=== PATIENT | female | born 1980 | race Caucasian/White ===

== ENCOUNTER 2018-02-15 11:55 | Outpatient (CLI) | payer OTHER | END 2018-02-15 11:56 | disposition home or self-care (01) | LOC: BICMAMMO 11:55 | PROVIDERS: ATTEND Family Medicine | DX: N64.4 Mastodynia (principal); Z80.3 Family history of malignant neoplasm of breast | CPT/HCPCS: 77066; G0279 ==

== ENCOUNTER 2019-03-26 09:04 | Outpatient (CLI) | payer OTHER ==
--- NOTE | 2019-03-26 09:38 | MMO ---
Bilateral MAMMO Bilat Screen [facility]. CLINICAL HISTORY: Patient is 39 years old and is seen for screening. The patient has the following family history of breast cancer: paternal grandmother, at age 90. The patient has no personal history of cancer. The patient has a history of Implants in 2014. VIEWS: The views performed were: bilateral craniocaudal with tomosynthesis; bilateral mediolateral oblique with tomosynthesis; and bilateral Implant displaced. FILMS COMPARED: The present examination has been compared to prior imaging studies performed at [facility] on 02/15/2018, and at [facility] on 02/25/2014. MAMMOGRAM FINDINGS: The breasts are extremely dense, which may lower the sensitivity of mammography. There are no suspicious masses, suspicious calcifications, or new areas of architectural distortion. IMPRESSION: THERE IS NO MAMMOGRAPHIC EVIDENCE OF MALIGNANCY. A ROUTINE FOLLOW-UP MAMMOGRAM IN 1 YEAR IS RECOMMENDED. THE RESULTS OF THIS EXAM WERE SENT TO THE PATIENT. ACR BI-RADS Category 1 - Negative MAMMOGRAPHY NOTE: 1. A negative mammogram report should not delay a biopsy if a dominant of clinically suspicious mass is present. 2. Approximately 10% to 15% of breast cancers are not detected by mammography. 3. Adenosis and dense breasts may obscure an underlying neoplasm.
== END 2019-03-26 09:05 | disposition home or self-care (01) ==
LOC: BICMAMMO 09:04
PROVIDERS: ATTEND Family Medicine
DX: Z12.31 Encounter for screening mammogram for malignant neoplasm of breast (principal); Z80.3 Family history of malignant neoplasm of breast; Z98.82 Breast implant status
CPT/HCPCS: 77063; 77067

== ENCOUNTER 2019-09-24 14:16 | Outpatient (CLI) | payer OTHER ==
--- NOTE | 2019-09-24 14:48 | ULT ---
Thyroid ultrasound: 09/24/2019 COMPARISON: 04/15/2015 HISTORY: Thyroid nodule TECHNIQUE: Multiplanar grayscale sonographic imaging of the thyroid gland obtained. FINDINGS: Left lobe measures 1.2 x 2.6 x 0.9 cm and right lobe measures 1.5 x 3.1 x 1.0 cm. Thyroid i sthmus measures 2 mm in AP dimension. Overall the thyroid parenchyma is heterogeneous and lobulated with no discrete/dominant thyroid nodule seen. IMPRESSION: No discrete thyroid nodule noted on this examination.
== END 2019-09-24 14:17 | disposition home or self-care (01) ==
LOC: SCSULT 14:16
PROVIDERS: ATTEND Family Medicine
DX: E04.1 Nontoxic single thyroid nodule (principal)
CPT/HCPCS: 76536

== ENCOUNTER 2019-11-19 14:18 | Outpatient (CLI) | payer OTHER ==
--- NOTE | 2019-11-19 14:49 | ULT ---
EXAM: Transabdominal pelvic ultrasound with Doppler PROVIDED CLINICAL HISTORY: Pelvic pain COMPARISON: None FINDINGS: The uterus measures approximately 6.3 x 4.5 x 5.9 cm and demonstrates a normal transabdominal sonogra phic appearance. Uterine endometrial thickness is 6-7 mm. Right ovary measures approximately 3.0 x 1.3 x 2.5 cm and demonstrates a normal transabdominal sonogr aphic appearance. Left ovary measures approximately 3.6 x 1.8 x 2.5 cmdemonstrates a normal transabdominal sonographic appearance. Grayscale and color Doppler sonography with spectral analysis of the ovarian waveforms demonstrates n ormal flow bilaterally. There is no evidence for significant free pelvic fluid. IMPRESSION: Unremarkable transabdominal pelvic ultrasound.
== END 2019-11-19 14:19 | disposition home or self-care (01) ==
LOC: SCSULT 14:18
PROVIDERS: ATTEND Family Medicine
DX: R10.2 Pelvic and perineal pain (principal)
CPT/HCPCS: 76856; 93976

== ENCOUNTER 2019-12-23 12:50 | Outpatient (CLI) | payer OTHER | END 2019-12-23 12:51 | disposition home or self-care (01) | PROVIDERS: ATTEND Family Medicine | DX: R00.2 Palpitations (principal) | CPT/HCPCS: 93225; 93226 ==

== ENCOUNTER 2021-04-02 08:16 | Outpatient (CLI) | payer OTHER | END 2021-04-02 08:17 | disposition home or self-care (01) | LOC: BICMRI 08:16 | PROVIDERS: ATTEND Family Medicine | DX: Z12.31 Encounter for screening mammogram for malignant neoplasm of breast (principal); R51.9 Headache, unspecified; M54.2 Cervicalgia; M50.21 Other cervical disc displacement, high cervical region | CPT/HCPCS: 70551; 72141; 77063; 77067 ==

== ENCOUNTER 2022-04-05 08:29 | Outpatient (CLI) | payer OTHER | END 2022-04-05 08:30 | disposition home or self-care (01) | LOC: BICMAMMO 08:29 | PROVIDERS: ATTEND Family Medicine | DX: N63.10 Unspecified lump in the right breast, unspecified quadrant (principal) | CPT/HCPCS: 77066; G0279 ==

== ENCOUNTER 2023-05-04 10:24 | Outpatient (CLI) | payer BC | END 2023-05-04 10:25 | disposition home or self-care (01) | LOC: BICMAMMO 10:24 | PROVIDERS: ATTEND Family Medicine | DX: R92.8 Other abnormal and inconclusive findings on diagnostic imaging of breast (principal); Z98.82 Breast implant status; Z80.3 Family history of malignant neoplasm of breast | CPT/HCPCS: 77066; G0279 ==

== ENCOUNTER 2024-04-04 09:28 | Outpatient (CLI) | payer BC, OTHER | END 2024-04-04 09:29 | disposition home or self-care (01) | LOC: BICMAMMO 09:28 | PROVIDERS: ATTEND Family Medicine | DX: N63.23 Unspecified lump in the left breast, lower outer quadrant (principal); N64.4 Mastodynia | CPT/HCPCS: 77066; G0279 ==